=== PATIENT | male | born 1975 | race Two or more races ===

== ENCOUNTER 2024-03-07 08:58 | Emergency (ER) | payer MEDICAID, SELFPAY ==
[2024-03-07 09:00] VITALS: BP 147/111; BP 181/116; PULSE 103; RESP 20; TEMP 37; O2SAT 95; BMI 23.2
--- NOTE | 2024-03-07 09:16 | XR_ITS ---
Examination: PA lateral chest 2 views TECHNIQUE: Upright PA lateral chest 2 views Exam date and time: March 07, 2024 0921 hours Comparison 01/10/2020 INDICATIONS: Chest pain today. FINDINGS: Normal heart size Lungs are clear. The osseous structures are intact IMPRESSION: No active disease
--- NOTE | 2024-03-07 09:16 | EKG_ITS ---
[facility] Test Date: 2024-03-07 Pat Name: TYSON SPAIN Department: Room: - Gender: Male [employer]: : 1975 Requested By: Rufino Mcbride (DEEPA) Order Number: [id number] Reading MD: Rufino Mcbride (DEEPA) Measurements Intervals [place] Rate: 86 P: 68 [place]: 134 QRS: 45 QRSD: 85 T: 37 QT: 339 QTc: 407 Interpretive Statements SINUS RHYTHM POSSIBLE RIGHT VENTRICULAR CONDUCTION DELAY [RSR (QR) IN V1/V2] No previous ECG available for comparison /store/[email or web address]/[id number]
[2024-03-07 09:41] LABS: Basophils % (Auto) 1 % (0-2.5); Eosinophils # (Auto) 0.1 Thou/mm3 (0.0-0.5); Eosinophils % (Auto) 2 % (0-10); Hematocrit 49.4 % (41.0-53.0); Hemoglobin 16.7 g/dL (13.5-16.0); Immature Granulocytes % (Auto) 0 % (0-0); Immature Granulocytes Auto 0.01 Thou/mm3 (0.00-0.00); Lymphocytes # (Auto) 1.3 Thou/mm3 (1.0-4.8); Lymphocytes % (Auto) 26 % (10-50); Mean Corpuscular HGB Conc 33.8 g/dl (31.0-37.0); Mean Corpuscular Hemoglobin 31.9 pg (25.0-35.0); Mean Corpuscular Volume 94 fL (80-100); Monocytes # (Auto) 0.4 Thou/mm3 (0.0-0.8); Monocytes % (Auto) 8 % (0-12); Neutrophils # (Auto) 3.2 Thou/mm3 (1.8-7.7); Neutrophils % (Auto) 63 % (37-80); Nucleated Red Blood Cell % 0 /100 WBC (0); Platelet Count 225 Thou/mm3 (140-440); RDW Standard Deviation 43.7 fL (35.1-43.9); Red Blood Count 5.24 Miln/mm3 (4.50-5.90)
[2024-03-07 10:03] LABS: Collection Type, Urine Clean Catch
[2024-03-07 10:05] LABS: Alanine Aminotransferase 57 U/L (10-49); Albumin, Serum 5.1 gm/dL (3.5-5.0); Albumin/Globulin Ratio 1.9 (1.2-2.2); Alkaline Phosphatase 90 U/L (46-116); Anion Gap 5 (7-16); Aspartate Amino Transferase 41 U/L (0-34); BUN/Creatinine Ratio 13 Ratio (12-20); Bilirubin,Total 0.9 mg/dL (0.3-1.2); Blood Urea Nitrogen 15 mg/dL (9-23); Calcium 10.4 mg/dL (8.3-10.6); Calcium (Corrected) 10.4 mg/dL (8.5-10.1); Carbon Dioxide 29.8 mMol/L (20.0-31.0); Chloride 101 mMol/L (98-107); Creatinine (Component) 1.2 mg/dL (0.6-1.3); Estimated Creatinine Clearance 71.1 mL/min (>60); Globulin 2.7 gm/dL (2.3-3.5); Glucose 113 mg/dL (74-106); Magnesium 2.4 mg/dL (1.6-2.6); Osmolality,Calculated 273 (275-295); Potassium 4.6 mMol/L (3.4-5.1); Sodium 136 mMol/L (136-145); Total Protein 7.8 gm/dL (5.7-8.2); Troponin I < 0.020 ng/mL (0.0-0.045); eGFR > 60 See Note
[2024-03-07 10:10] LABS: B-Type Natriuretic Peptide < 20 pg/mL (0-100)
[2024-03-07 10:22] LABS: Bacteria,Urine Rare; Bilirubin,Urine Negative (Negative); Blood,Urine Negative (Negative); Clarity,Urine Clear (Clear/Hazy); Color,Urine Lt-Yellow (Lt Yel-Yel); Glucose, Urine Negative (Negative); Hyaline Casts,Urine < 1 /hpf (0-1); Ketones,Urine Negative (Negative); Leukocyte Esterase,Urine Negative (Negative); Nitrite,Urine Negative (Negative); PH,Urine 6.5 (5.0-7.0); Protein,Urine Negative (Neg - Trace); RBC,Urine 2 /hpf (0-3); Specific Gravity,Urine 1.018 (1.001-1.035); Squamous Epithelial Cell,Urine 1 /hpf (0-5); Urobilinogen,Urine Negative mg/dL (0.0-1.0); WBC,Urine < 1 /hpf (0-5)
[2024-03-07 10:28] LABS: Amphetamine/Methamp Scrn,U Negative (Negative); Barbiturate Screen,Urine Negative (Negative); Benzodiazepines Screen,Urine Negative (Negative); Benzoylecgonine Screen, Ur Negative (Negative); Fentanyl Screen,Urine Negative (Negative); Opiate Screen,Urine Negative (Negative); THC Screen,Urine Negative (Negative)
--- NOTE | 2024-03-07 10:48 | XR_ITS ---
Examination: CT brain head without contrast. 2-D sagittal coronal reconstructions Date and time of exam:March 07, 2024 1108 hours INDICATIONS: Headache with right-sided head pain and facial numbness beginning this morning CTDI: vol (mGy):50.9 DLP: (mGycm):1027 Technique: Multiple CT axial sections of the brain have been obtained, 5 mm slice thickness. Contrast has not been administered. 2-D sagittal, coronal reconstructions have been obtained Low dose protocols were performed. One or more of the following dose reduction techniques were used; automated exposure control, adjustment of the mA and/or KV according to patient size, use of iterative reconstruction technique. Findings: No significant ventricular enlargement. Intra-axial or extra-axial hemorrhage density is not seen. No mass effect or midline shift Basal cisterns are not remarkable. Fourth ventricle is midline. Cranial vault intact. Impression: Negative for acute hemorrhage, mass effect or midline shift Brain MRI follow-up would best assess for demyelinating disease, acute ischemic change
[2024-03-07] MEDS: DIAZEPAM 5 MG TABLET 10 MG PO (11:14)
--- NOTE | 2024-03-07 11:49 | EDNOTE_ITS ---
ED General RME/HPI General Chief complaint: General Adult/Misc Complain Stated complaint: VERY STRESS FOR DAYS, SHAKING, R side face numness Time Seen by Provider: 03/07/24 09:00 Arrival date/time: 03/07/24 08:58 49-year-old male with history of alcohol abuse but and hypertension presents to the emergency department complaints of anxiety. Patient reports he has been very stressed out at work therefore he came to the ER for further evaluation Limitations: no limitations Related Data Previous Rx's ?Medication ?Instructions ?Recorded chlordiazepoxide HCl 25 mg capsule 25 mg PO Q8H PRN alcohol 05/01/18 withdrawal #14 caps metoprolol tartrate 50 mg tablet See Rx Instructions .Route 05/01/18 (Lopressor) .COMPLEX #7 tabs lisinopril 10 mg tablet 10 mg PO QDAY #30 tabs 01/10/20 Allergies Allergy/AdvReac Type Severity Reaction Status Date / Time No Known Allergies Allergy Verified 03/07/24 09:00 Review of Systems Review of Systems Systems Reviewed: All systems reviewed, normal except as documented Constitutional Constitutional: Reports system reviewed and no additional complaints, except as documented, Denies fever(s) and Denies headache(s) Eyes Eyes: Reports system reviewed and no additional complaints, except as documented and Denies blurry vision ENT Ears, Nose, Mouth, and Throat: Reports system reviewed and no additional complaints, except as documented, Denies headache(s), Denies nasal congestion and Denies nasal discharge Cardiovascular Cardiovascular: Reports system reviewed and no additional complaints, except as documented, Denies chest pain and Denies dyspnea Respiratory Respiratory: Reports system reviewed and no additional complaints, except as documented, Denies chest congestion, Denies cough and Denies dyspnea Gastrointestinal Gastrointestinal: Reports system reviewed and no additional complaints, except as documented and Denies abdominal pain Integumentary/Breasts Skin/Breast: Reports system reviewed and no additional complaints, except as documented and Denies rash Neurologic Neurologic: Reports system reviewed and no additional complaints, except as documented, Reports as per HPI and Denies headache(s) Psychiatric Psychiatric: Reports system reviewed and no additional complaints, except as documented, Reports anxiety, Denies homicidal ideation and Denies suicidal ideation Past Medical History Past Medical History NEUROLOGIC: Negative Neurological Disorders CARDIAC: Positive Cardiac Disorders, Hypercholesterolemia and Hypertension; Negative Congestive Heart Failure RESPIRATORY: Negative Chronic Obstructive Pulmonary Disease (COPD) GASTROINTESTINAL: Negative Gastrointestinal Disorders GENITOURINARY: Negative Genitourinary Disorders or Renal Disease MUSCULOSKELETAL: Negative Musculoskeletal Disorders ENDOCRINE: Negative Endocrine Disorders, Diabetes Mellitus Type 1 or Diabetes Mellitus Type 2 Social History SMOKING STATUS: Former smoker SUBSTANCE USE: crack/cocaine ED Exam General Limitations: Present no limitations General appearance: Present alert and in no apparent distress Head Head exam: Present atraumatic Eye Eye exam: Present normal appearance, PERRL and EOMI; Absent conjunctival injection ENT ENT exam: Present normal exam, normal oropharynx and mucous membranes moist Neck Neck exam: Present normal inspection, full ROM and trachea midline Chest Chest inspection: Present normal inspection and symmetric chest wall rise Respiratory Respiratory exam: Present normal lung sounds bilaterally Cardiovascular Cardiovascular exam: Present regular rate, normal rhythm and normal heart sounds; Absent bradycardia, tachycardia, irregular rhythm or systolic murmur Abdominal Exam Abdominal exam: Present soft and normal bowel sounds; Absent distention, tenderness, guarding, rebound or rigidity Extremities Exam Extremities exam: Present normal inspection and full ROM Back Exam Back exam: Present normal inspection and full ROM Neurological Exam Neurological exam: Present alert, oriented X3 and CN II-XII intact Psychiatric Psychiatric exam: Present normal affect and normal mood Skin Skin exam: Present warm, dry, intact and normal color Course Quality Measures none Orders Category Date Time Status EKG (ED ONLY) *Do not use* NOW Care 03/07/24 09:[address] head/brain wo con Stat Exams 03/07/24 10:48 Completed EKG (ED Only) Stat Exams 03/07/24 09:16 Draft XR chest 2V Stat Exams 03/07/24 09:16 Completed B-Type Natriuretic Peptide Stat Lab 03/07/24 09:27 Completed CBC Stat Lab 03/07/24 09:27 Completed Comprehensive Metabolic Panel Stat Lab 03/07/24 09:27 Completed Drug Screen,Urine Stat Lab 03/07/24 09:54 Completed Magnesium Stat Lab 03/07/24 09:27 Completed Troponin I Stat Lab 03/07/24 09:27 Completed Urinalysis Stat Lab 03/07/24 09:54 Completed Diazepam [Valium] Med 03/07/24 09:16 Discontinued 10 mg PO X1 ONE Vital Signs Vital signs: Vital Signs Temperature 98.6 F 03/07/24 09:00 Pulse Rate 103 H 03/07/24 09:00 Respiratory Rate 20 11/25/24 09:00 Blood Pressure 181/116 H 03/07/24 09:00 Pulse Oximetry (%) 95 03/07/24 09:00 Oxygen Delivery Method Room Air 03/07/24 09:00 O2 saturation 95% room air within normal limits Procedures -ED EKG Interpretation #1: Date of EK03/07/24 Time of EK:37 Rate: 86 Interpretation: Interpreted by me EKG Impression: Normal sinus rhythm, No acute ST-T changes, No ectopy, No ischemic changes, Normal QRS, Normal intervals and Normal axis MDM Patient data External records reviewed:: [facility] previous records Clinical information provided by:: patient Social determinants that could affect healthcare access:: alcohol use Patient has the following chronic illnesses:: Alcohol abuse, hypertension, anxiety How is presenting disease/condition affected by chronic disease/condition?: c aused by Evaluation data The following diagnostics were reviewed and interpreted by me:: lab results, radiology exam(s) and EKG tracing(s) Lab and/or radiology exams considered but not ordered:: Labs, radiology, EKG Interpretation Summary: Reviewed by me Medications Medications considered but not ordered:: Given Medication administrations:: Medication Administration History Discontinued Medications Diazepam (Diazepam 5 Mg Tablet) 10 mg PO X1 ONE Stop: 03/07/24 09:17 Last Admin: 03/07/24 11:14 Dose: 10 mg Documented By: AM Given Consultations Consultation(s) initiated? (list below): No Diagnosis Differential Diagnosis ED Complaint MDM: Alcohol abuse, stress, anxiety Most likely diagnosis given after review of the tests above:: Alcohol abuse, stress, anxiety Admission Indicated Admission indicated?: not indicated Explain why admission is indicated or not indicated:: No criteria Admission Request Was there a request for admission?: No Disposition Plan Disposition Plan: Discharge Discharge Attestation Discharge Attestation: The patient and all family members were given an opportunity to ask questions and understood the discharge instructions. Discharge instructions specifically effects, indications for sooner follow up or return to the emergency department, and the expected course of current diagnosis. Patient condition: Stable Medical Decision Making MDM Narrative MDM Narrative: 49-year-old male with history of alcohol abuse but and hypertension presents to the emergency department complaints of anxiety. Patient reports he has been very stressed out at work therefore he came to the ER for further evaluation On exam patient well-appearing patient does not appear ill or toxic patient walks with steady gait no abnormal neurological findings no tremors Patient reports that he was breathing fast and had right-sided facial numbness On exam neurological exam is normal Lab work chest x-ray EKG and CT scan obtained no acute emergent findings noted Patient was given Valium here in the emergency department at the time of reevaluation patient reports that he feels so much better Patient discharged home in no distress to follow-up with primary care doctor in the next 24 to 48 hours and for any worsening symptoms to return to the ER immediately Differential Diagnosis Differential Diagnosis: Alcohol abuse, stress, anxiety Medical Records Medical records reviewed: Yes I reviewed the patient's medical records. Lab Data Lab results reviewed: Yes I reviewed the patient's lab results. 03/07/24 09:27 03/07/24 09:27 Labs: Lab Results 03/07/24 03/07/24 Range/Units 09:27 09:54 WBC 5.0 (3.8-10.6) Thou/mm3 RBC 5.24 (4.50-5.90) Miln/mm3 Hgb 16.7 H (13.5-16.0) g/dL Hct 49.4 (41.0-53.0) % MCV 94 (80-100) fL MCH 31.9 (25.0-35.0) pg MCHC 33.8 (31.0-37.0) g/dl RDW Std Deviation 43.7 (35.1-43.9) fL Plt Count 225 (140-440) Thou/mm3 Neut % (Auto) 63 (37-80) % Lymph % (Auto) 26 (10-50) % [place] % (Auto) 8 (0-12) % Eos % (Auto) 2 (0-10) % Baso % (Auto) 1 (0-2.5) % Neut # (Auto) 3.2 (1.8-7.7) Thou/mm3 Lymph # (Auto) 1.3 (1.0-4.8) Thou/mm3 [place] # (Auto) 0.4 (0.0-0.8) Thou/mm3 Eos # (Auto) 0.1 (0.0-0.5) Thou/mm3 Baso # (Auto) 0.0 (0.0-0.2) Thou/mm3 Immature Gran # (Auto) 0.01 H (0.00-0.00) Thou/mm3 Absolute Nucleated RBC 0.00 (0.00-0.00) Thou/mm3 Immature Gran % 0 (0-0) % Nucleated RBC % 0 (0) /100 WBC Sodium 136 (136-145) mMol/L Potassium 4.6 (3.4-5.1) mMol/L Chloride 101 (98-107) mMol/L Carbon Dioxide 29.8 (20.0-31.0) mMol/L Anion Gap 5 L (7-16) BUN 15 (9-23) mg/dL Creatinine 1.2 (0.6-1.3) mg/dL Estim Creat Clear Calc 71.1 (>60) mL/min eGFR > 60 (60 - ) See Note BUN/Creatinine Ratio 13 (12-20) Ratio Glucose 113 H (74-106) mg/dL Calculated Osmolality 273 L (275-295) Calcium 10.4 (8.3-10.6) mg/dL Corrected Calcium 10.4 H (8.5-10.1) mg/dL Magnesium 2.4 (1.6-2.6) mg/dL Total Bilirubin 0.9 (0.3-1.2) mg/dL AST 41 H (0-34) U/L ALT 57 H (10-49) U/L Alkaline Phosphatase 90 (46-116) U/L Troponin I < 0.020 (0.0-0.045) ng/mL B-Natriuretic Peptide < 20 (0-100) pg/mL Total Protein 7.8 (5.7-8.2) gm/dL Albumin 5.1 H (3.5-5.0) gm/dL Globulin 2.7 (2.3-3.5) gm/dL Albumin/Globulin Ratio 1.9 (1.2-2.2) Ur Collection Type Clean Catch Urine Color Lt-Yellow (Lt Yel-Yel) Urine Clarity Clear (Clear/Hazy) Urine pH 6.5 (5.0-7.0) Ur Specific [place] 1.018 (1.001-1.035) Urine Protein Negative (Neg - Trace) Urine Glucose (UA) Negative (Negative) Urine Ketones Negative (Negative) Urine Blood Negative (Negative) Urine Nitrite Negative (Negative) Urine Bilirubin Negative (Negative) Urine Urobilinogen (Auto) Negative (0.0-1.0) mg/dL Ur Leukocyte Esterase Negative (Negative) Urine RBC 2 (0-3) /hpf Urine WBC < 1 (0-5) /hpf Ur Squamous Epith Cells 1 (0-5) /hpf Urine Bacteria Rare (None) Hyaline Casts < 1 (0-1) /hpf Urine Opiates Screen Negative (Negative) Urine Fentanyl Screen Negative (Negative) Ur Barbiturates Screen Negative (Negative) U Amphetamin/Meth Scrn Negative (Negative) U Benzodiazepines Scrn Negative (Negative) U Cocaine Metab Screen Negative (Negative) U Marijuana (THC) Screen Negative (Negative) Radiology Data Radiology results reviewed: Yes I reviewed the patient's radiology results. Discharge Plan Plan Patient Disposition: HOME (Self Care) Disposition Comment: Stable Prescriptions/Referrals Prescriptions/Med Rec: No Action chlordiazepoxide HCl 25 mg capsule 25 mg PO Q8H PRN (Reason: alcohol withdrawal) Qty: 14 0RF metoprolol tartrate [Lopressor] 50 mg tablet See Rx Instructions .ROUTE .COMPLEX Qty: 7 0RF Rx Instructions: 1/2 tablet, po, daily for high blood pressor lisinopril 10 mg tablet 10 mg PO QDAY Qty: 30 0RF Referrals: Neftali Brady MD [Primary Care Provider] - 03/08/24 Problem List Clinical Impression: Anxiety, History of alcohol abuse Patient/Caregiver Discharge Instructions Education Materials: Alcohol Addiction Additional Instructions: Please follow up with your primary care doctor in the next 24-48hrs for any worsening symptoms return here immediately Print Language: Albanian Stand Alone Forms: Ashley Award Info., Work/School Release, Patient Portal Info Letter Attestation MD Attestation The patient was seen by the midlevel practitioner. I, the co-signing physician, was present during the entire ER visit. While I did not physically examine the patient, I was available for consultation as needed.
== END 2024-03-07 12:02 | disposition home or self-care (01) ==
PROVIDERS: Nurse Practitioner Primary Care; Emergency Provider Emergency Medicine; PCP Family Medicine
DX: F41.9 Anxiety disorder, unspecified (principal); R94.31 Abnormal electrocardiogram [ECG] [EKG]; R07.9 Chest pain, unspecified; R51.9 Headache, unspecified; R20.0 Anesthesia of skin; I10 Essential (primary) hypertension; Z87.891 Personal history of nicotine dependence
CPT/HCPCS: 36415; 70450; 71046; 80053; 80307; 81001; 83735; 83880; 84484; 85025; 93005; 99284; A9270